=== PATIENT | male | born 1970 ===

== ENCOUNTER 2016-12-21 12:39 | Emergency (ER) | payer OTHER ==
[2016-12-21] MEDS ORDERED: Sodium Chloride 0.9% 1,000 ML IV STA (14:45)
[2016-12-21 15:15] LABS: BASO % 0.6 % (0.0-2.0); EOS # 0.1 K/uL (0.0-0.7); EOS % 1.5 % (0.0-4.0); HEMATOCRIT 42.5 % (35.0-51.0); LYMPH # 1.3 K/uL (1.0-4.3); LYMPH % 17.8 % (20.0-40.0); MEAN CELL VOLUME 86.7 fl (80.0-94.0); MEAN CORPUSCULAR HEMOGLOBIN 28.4 pg (27.0-31.0); MEAN CORPUSCULAR HGB CONC 32.8 g/dL (33.0-37.0); MEAN PLATELET VOLUME 7.6 fl (7.2-11.7); MONO # 0.3 K/uL (0.0-0.8); MONO % 4.4 % (0.0-10.0); NEUT # 5.4 K/uL (1.8-7.0); NEUT % 75.7 % (50.0-75.0); NRBC % 0.1 % (0.0-0.0); RED CELL DISTRIBUTION WIDTH 14.2 % (11.5-14.5); WHITE BLOOD COUNT 7.2 K/uL (4.8-10.8)
[2016-12-21 15:25] LABS: ALB/GLOB RATIO 1.1 (1.0-2.1); ALKALINE PHOSPHATASE 100 U/L (38-126); ALT/SGPT 47 U/L (21-72); AST/SGOT 44 U/L (17-59); BILIRUBIN,TOTAL 0.7 mg/dl (0.2-1.3); BLOOD UREA NITROGEN 10 mg/dl (9-20); CARBON DIOXIDE 25 mmol/L (22-30); CHLORIDE 106 mmol/L (98-107); GFR AFRICAN-AMERICAN > 60; GLUCOSE,RANDOM 92 mg/dL (75-110); POTASSIUM 4.3 MMOL/L (3.6-5.0); SODIUM 140 mmol/l (132-148)
--- NOTE | 2016-12-21 15:25 | RAD ---
HISTORY: Chest pain COMPARISON: No prior. TECHNIQUE: Chest PA and lateral FINDINGS: LUNGS: Mild pulmonary vascular congestion is noted. PLEURA: No significant pleural effusion identified. No pneumothorax apparent. CARDIOVASCULAR: Normal. OSSEOUS STRUCTURES: No significant abnormalities. VISUALIZED UPPER ABDOMEN: Normal. OTHER FINDINGS: None. IMPRESSION: Mild pulmonary vascular congestion.
[2016-12-21 15:56] LABS: THYROID STIMULATING HORMONE 0.67 mIU/ML (0.46-4.68)
[2016-12-21 16:18] LABS: RBC URINE 2 /hpf (0-3); URINE BILIRUBIN NEGATIVE (NEGATIVE); URINE BLOOD NEGATIVE (NEGATIVE); URINE COLOR STRAW (YELLOW); URINE GLUCOSE (UA) NEG (Normal); URINE KETONE NEGATIVE (NEGATIVE); URINE LEUKOCYTE ESTERASE NEG Leu/uL (Negative); URINE PROTEIN NEGATIVE (NEGATIVE); URINE UROBILINOGEN 0.2-1.0 mg/dL (0.2-1.0); WBC URINE < 1 /hpf (0-5)
--- NOTE | 2016-12-21 18:43 | ED PDOC ---
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 Denies fever, rash, cough, SOB, syncope, fever or headache. States was admitted to [facility] several months ago and had cardiac workup and told "heart is fine" in a followup visit with Dr Jayleen [place]. Past Medical History Reviewed: Historical Data, Nursing Documentation, Vital Signs Vital Signs: Last Vital Signs Temp 98.6 F 12/21/16 12:54 Pulse 78 12/21/16 12:54 Resp 20 12/21/16 12:54 BP 151/69 H 12/21/16 12:54 Pulse Ox 99 12/21/16 12:54 - Medical History PMH: No Chronic Diseases - Surgical History Other surgeries: ? shoulder surgery [place] - Family History Family History: States: Unknown Family Hx - Social History Current smoker - smoking cessation education provided: No Alcohol: None - Home Medications Home Medications: Ambulatory Orders Medication Instructions Recorded Naproxen [Naprosyn] 500 mg PO BID PRN #14 tablet 12/21/16 - Allergies Allergies/Adverse Reactions: Allergies Allergy/AdvReac Type Severity Reaction Status Date / Time No Known Allergies Allergy Verified 12/21/16 12:54 Review of Systems ROS Statement: Except As Marked, All Systems Reviewed And Found Negative Constitutional: Positive for: Malaise. Negative for: Fever, Chills Cardiovascular: Positive for: Chest Pain. Negative for: Palpitations, Orthopnea Respiratory: Negative for: Cough, Shortness of Breath Gastrointestinal: Negative for: Nausea, Vomiting, Abdominal Pain Genitourinary Male: Negative for: Dysuria, Frequency Musculoskeletal: Positive for: Back Pain, Leg Pain. Negative for: Neck Pain, Shoulder Pain Skin: Negative for: Rash, Lesions, Jaundice Neurological: Negative for: Weakness, Numbness Psych: Negative for: Anxiety, Depression Physical Exam - Reviewed Nursing Documentation Reviewed: Yes Vital Signs Reviewed: Yes - Physical Exam Appears: Positive for: Well, Non-toxic, No Acute Distress Head Exam: Positive for: ATRAUMATIC, NORMAL INSPECTION, NORMOCEPHALIC Skin: Positive for: Normal Color, Warm, DRY Eye Exam: Positive for: EOMI, Normal appearance, PERRL ENT: Positive for: Normal ENT Inspection Neck: Positive for: Normal, Painless ROM Cardiovascular/Chest: Positive for: Regular Rate, Rhythm Respiratory: Positive for: CNT, Normal Breath Sounds Gastrointestinal/Abdominal: Positive for: Normal Exam, Bowel Sounds, Soft. Negative for: Tenderness Back: Positive for: Normal Inspection, Muscle Spasm. 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 Negative for: Motor/Sensory Deficits, Aphasia, Facial Droop - Laboratory Results Result Diagrams: 12/21/16 14:56 12/21/16 14:56 - ECG O2 Sat by Pulse Oximetry: 99 Medical Decision Making Medical Decision Making: workup initiated for atypical chest pain with lower back discomfort. Neurologically intact. Labs reviewed, clinically unremarkable Trop neg chem and CBC unremarkable mild elev Total CK CXR read as mild pulm vasc congestion, BNP added on and normal Disposition - Clinical Impression Clinical Impression: Chest pain - Patient ED Disposition Is Patient to be Admitted: No Counseled Patient/Family Regarding: Studies Performed, Diagnosis, Need For Followup, Rx Given - Disposition Referrals: Yrn Porter MD [Staff Provider] - Disposition: Routine/Home Disposition Time: 17:30 Condition: STABLE Additional Instructions: Followup with your doctor within next 2-3 days. Return to ER for any new or worsening symptoms. Prescriptions: Naproxen [Naprosyn] 500 mg PO BID PRN #14 tablet PRN Reason: Pain, Moderate (4-7) Instructions: Chest Pain (ED) Print Language: AMHARIC
[2016-12-21 18:58] VITALS: BP 120/80; PULSE 74; RESP 20; TEMP 98; O2SAT 98
--- NOTE | 2016-12-21 19:32 | CARD ---
APPROVED REPORT EKG Measurement Heart [id number] IL [id number] <Conclusion> Sinus rhythm with occasional premature ventricular complexes Otherwise normal ECG
== END 2016-12-21 18:59 | disposition home or self-care (01) ==
LOC: H.ER 12:39
DX: R07.89 Other chest pain (principal); M54.9 Dorsalgia, unspecified

== ENCOUNTER 2017-08-03 13:50 | Emergency (ER) | payer OTHER ==
[2017-08-03 13:51] VITALS: BMI 44.9
--- NOTE | 2017-08-03 14:47 | ED PDOC ---
HPI: CCC, URI, Sore Throat Time Seen by Provider: 08/03/17 14:24 Chief Complaint (Nursing): Cough, Cold, Congestion Chief Complaint (Provider): URI History Per: Patient History/Exam Limitations: no limitations Additional Complaint(s): 47 yo male, PMH of DM, HTN, BAck pain, presents to ED with complaints of nasal congestion and cough x 5 days, upper back pain when he coughs. no fever or chills. additionally, Pt notes chronic lower back pain. Pt has been referred to neurosurgery and PT; however, has yet to arrange follow up. Pt made aware of importance of doing so. Pt has had multiple MRIs in the past showing, Disc herniations. Pt taking Naprozen and Gabbapentin without relief. Past Medical History Reviewed: Nursing Documentation, Vital Signs Vital Signs: Last Vital Signs Temp 97 F L 08/03/17 14:06 Pulse 70 08/03/17 14:06 Resp 20 08/03/17 14:06 BP 157/61 H 08/03/17 14:06 Pulse Ox 95 08/03/17 14:48 - Medical History PMH: Back Problems, Diabetes, HTN, Chronic Pain (back, radiating to legs) Denies: Chronic Kidney Disease - Surgical History Surgical History: No Surg Hx - Family History Family History: States: Unknown Family Hx - Living Arrangements Living Arrangements: With Family - Social History Current smoker - smoking cessation education provided: No Alcohol: None Drugs: Denies - Immunization History Hx Tetanus Toxoid Vaccination: No Hx Influenza Vaccination: No Hx Pneumococcal Vaccination: No - Home Medications Home Medications: Ambulatory Orders Medication Instructions Recorded RX: Metformin HCl [Metformin HCl 500 mg PO BID 06/01/17 ER] Famotidine [Pepcid] 20 mg PO HS #30 tab 06/17/17 RX: Aspirin 81 mg PO DAILY 06/17/17 Tramadol HCl/Acetaminophen 1 tab PO 06/17/17 [Acetaminophen-Tramadol HCl 325 mg-37.5 mg] Methylprednisolone [Medrol Dose 4 mg PO DAILY #21 mg 08/03/17 Pack (21 tabs)] oxyCODONE/Acetaminophen [Percocet 1 ea PO Q6 PRN #5 tab 08/03/17 5/325 mg Tab] - Allergies Allergies/Adverse Reactions: Allergies Allergy/AdvReac Type Severity Reaction Status Date / Time No Known Allergies Allergy Verified 06/17/17 17:06 Review of Systems ROS Statement: Except As Marked, All Systems Reviewed And Found Negative ENT: Positive for: Nose Congestion Respiratory: Positive for: Cough Musculoskeletal: Positive for: Back Pain Physical Exam - Reviewed Nursing Documentation Reviewed: Yes Vital Signs Reviewed: Yes - Physical Exam Appears: Positive for: Well, Non-toxic, No Acute Distress Head Exam: Positive for: ATRAUMATIC, NORMAL INSPECTION, NORMOCEPHALIC Skin: Positive for: Normal Color, Warm, DRY Eye Exam: Positive for: EOMI, Normal appearance, PERRL ENT: Positive for: Normal ENT Inspection Neck: Positive for: Normal, Painless ROM Cardiovascular/Chest: Positive for: Regular Rate, Rhythm Respiratory: Positive for: CNT, Normal Breath Sounds Gastrointestinal/Abdominal: Positive for: Normal Exam, Bowel Sounds, Soft Back: Positive for: Normal Inspection, Other ((-) Saddle anesthesia) Extremity: Positive for: Normal ROM Neurologic/Psych: Positive for: Alert, Oriented - ECG O2 Sat by Pulse Oximetry: 95 Medical Decision Making Medical Decision Making: CXR: NAd, as read by MARYAM 04/23/17: Impression: Multilevel posterior disc bulges as described most prominent at the L3-4 level. Rounded focal area of signal abnormality seen within T12 vertebral body measuring 1.3 centimeters demonstrating decreased T1 signal with increased STIR signal and increased T2 signal. This is of uncertain clinical etiology and underlying osseous lesion cannot be excluded. Correlation with a contrast- enhanced MRI and/or bone scan with plain x-ray may be helpful if clinically indicated to exclude underlying osseous lesion. Additional findings as above. 05/19/17: IMPRESSION: 1. Benign signal abnormality T12 vertebral body. 2. Generalized disc bulge with small central disc protrusion combines with facet arthropathy to cause moderate to severe central canal stenosis once again. 3. Added findings above. Disposition - Clinical Impression Clinical Impression: Upper respiratory infection, Back pain, Lumbar disc herniation with radiculopathy - Patient ED Disposition Is Patient to be Admitted: No - Disposition Disposition: Routine/Home Disposition Time: 15:42 Condition: STABLE Prescriptions: Methylprednisolone [Medrol Dose Pack (21 tabs)] 4 mg PO DAILY #21 mg oxyCODONE/Acetaminophen [Percocet 5/325 mg Tab] 1 ea PO Q6 PRN #5 tab PRN Reason: Pain, Severe (8-10) Instructions: Upper Respiratory Infection (ED), Lumbar Disc Herniation (ED) Forms: [facility] (New Zealander) Print Language: INDONESIAN
--- NOTE | 2017-08-03 15:15 | RAD ---
HISTORY: cough COMPARISON: Comparison chest 12/21/2016. TECHNIQUE: Chest PA and lateral FINDINGS: LUNGS: Persistent elevation right hemidiaphragm likely due to eventration. Suspect minor bibasilar atelectasis. PLEURA: No significant pleural effusion identified. No pneumothorax apparent. CARDIOVASCULAR: Normal. OSSEOUS STRUCTURES: Mild multilevel degenerative spondylosis of the thoracic spine. VISUALIZED UPPER ABDOMEN: Normal. OTHER FINDINGS: None. IMPRESSION: Suspect minor bibasilar atelectasis.
[2017-08-03 15:47] VITALS: BP 128/78; PULSE 78; RESP 19; TEMP 97.5; O2SAT 98
== END 2017-08-03 15:48 | disposition home or self-care (01) ==
LOC: H.ER 13:50
DX: J06.9 Acute upper respiratory infection, unspecified (principal); M51.16 Intervertebral disc disorders with radiculopathy, lumbar region; E11.9 Type 2 diabetes mellitus without complications; G89.29 Other chronic pain; I10 Essential (primary) hypertension; Z79.82 Long term (current) use of aspirin

== ENCOUNTER 2017-08-26 10:25 | Emergency (ER) | payer OTHER ==
[2017-08-26 10:25] VITALS: BMI 44.9
[2017-08-26 10:49] VITALS: BP 137/79; RESP 18; TEMP 98; O2SAT 96
--- NOTE | 2017-08-26 11:53 | ED PDOC ---
Lower Extremity Pain/Injury Time Seen by Provider: 08/26/17 10:56 Chief Complaint (Nursing): Lower Extremity Problem/Injury History Per: Patient History/Exam Limitations: no limitations Onset/Duration Of Symptoms: Days (1 ) Current Symptoms Are (Timing): Intermittent Episodes Additional Complaint(s): 47 yo ,m, PMhx/o DM, HTN, Chronic Lumbar pain with radiculopathy who presents to ED c/o right leg numbness started yesterday, noticed while he was watching his clothes, starting from right foot radiated to the right thigh, intermittent /3 times lasting 5 minutes associated with bilateral leg weakness that started 4 months ago, worse over left foot. He denies fever, lumbar trauma, fall, headache, dizziness, chest pain, SOB, n,v,abd pain, urinary incontinence, fecal incontinence, loss of sensation. Patient had recent visit to ED 3 weeks ago for similar symptoms and he was prescribed steroids, naproxen, Gabapentin with partial relief. Patient was told to apply for [facility] care in order to be seen by primary and Ortho but states he has not filled the papers yet. - Risk Factors DVT Risk Factors: Pos: None Past Medical History Vital Signs: Last Vital Signs Temp 98.0 F 08/26/17 10:42 Pulse 99 H 08/26/17 10:42 Resp 18 08/26/17 10:42 BP 137/79 08/26/17 10:42 Pulse Ox 96 08/26/17 10:42 - Medical History PMH: Back Problems, Diabetes, HTN, Chronic Pain (back, radiating to legs) Denies: Chronic Kidney Disease - Family History Family History: States: Unknown Family Hx - Immunization History Hx Tetanus Toxoid Vaccination: No Hx Influenza Vaccination: No Hx Pneumococcal Vaccination: No - Home Medications Home Medications: Ambulatory Orders Medication Instructions Recorded Metformin HCl [Metformin HCl ER] 500 mg PO BID 06/01/17 Aspirin 81 mg PO DAILY 06/17/17 Famotidine [Pepcid] 20 mg PO HS #30 tab 06/17/17 Tramadol HCl/Acetaminophen 1 tab PO 06/17/17 [Acetaminophen-Tramadol HCl 325 mg-37.5 mg] Methylprednisolone [Medrol Dose 4 mg PO DAILY #21 mg 08/03/17 Pack (21 tabs)] oxyCODONE/Acetaminophen [Percocet 1 ea PO Q6 PRN #5 tab 08/03/17 5/325 mg Tab] - Allergies Allergies/Adverse Reactions: Allergies Allergy/AdvReac Type Severity Reaction Status Date / Time No Known Allergies Allergy Verified 08/26/17 10:49 Wells Criteria for PE - Wells Criteria for Pulmonary Embolism Clinical Signs and Symptoms of DVT: No P.E is #1 Diagnosis, or Equally Likely: No Heart Rate >100: No Immobilization at least 3 days;Surgery previous 4 weeks: No Previous, objectively diagnosed PE or DVT: No Hemoptysis: No Malignancy w/treatment within 6 months, or palliative: No Total Score: 0 Review of Systems Neurological: Positive for: Weakness, Numbness Physical Exam - Physical Exam Appears: Positive for: No Acute Distress Head Exam: Positive for: ATRAUMATIC, NORMOCEPHALIC Skin: Positive for: Normal Color Eye Exam: Positive for: Normal appearance Neck: Positive for: Normal Cardiovascular/Chest: Positive for: Regular Rate, Rhythm. Negative for: Chest Non Tender, Murmur Respiratory: Positive for: Normal Breath Sounds. Negative for: Crackles, Rales , Rhonchi Pulses-Post. Tibialis (L): 2+ Pulses-Post. Tibialis (R): 2+ Gastrointestinal/Abdominal: Positive for: Bowel Sounds, Soft. Negative for: Tenderness, Guarding, Rebound Back: Positive for: Normal Inspection. Negative for: L CVA Tenderness, R CVA Tenderness Extremity: Positive for: Normal ROM. Negative for: Tenderness DTR - Knee (R): 2+ DTR - Knee (L): 2+ Neurologic/Psych: Positive for: Alert, Oriented, Other (Muscle strength 3/5 left foot for dorsal flexion. right leg muscle strenght 5/5. sensation intact lower ext. monofilament test neg. DTR 2+ Patellar b/l. ) - ECG O2 Sat by Pulse Oximetry: 96 Medical Decision Making Medical Decision Makin:45 AM Initial impression Right leg numbness secondary to Chronic low back pain with radiculopathy Plan Imaging: MRI Lumbar spine 05/09/17 Impression: Multilevel posterior disc bulges as described most prominent at the L3-4 level. Rounded focal area of signal abnormality seen within T12 vertebral body measuring 1.3 centimeters demonstrating decreased T1 signal with increased STIR signal and increased T2 signal. This is of uncertain clinical etiology and underlying osseous lesion cannot be excluded. Correlation with a contrast- enhanced MRI and/or bone scan with plain x-ray may be helpful if clinically indicated to exclude underlying osseous lesion. IMPRESSION: 1. Benign signal abnormality T12 vertebral body. 2. Generalized disc bulge with small central disc protrusion combines with facet arthropathy to cause moderate to severe central canal stenosis once again. 3. Added findings above. MRI Lumbar spine 05/2017 reviewed and discussed results with patient. Patient verbalized understanding of applying for [facility] in order to be seen by PMD and get referral to Ortho. Patient given my personal information card and will have follow up in clinic Dr Aguayo once he gets [facility]. Patient still has medications with him for pain and steroids, although patient' s medical chief complaint today is numbness. Disposition - Clinical Impression Clinical Impression: Lumbar radiculopathy, Lumbar disc herniation with radiculopathy - Patient ED Disposition Is Patient to be Admitted: No - Disposition Referrals: [facility] [Outside] Disposition: Routine/Home Disposition Time: 12:55 Condition: FAIR Additional Instructions: Patient verbalized understanding of applying for [facility] in order to be seen by PMD and get referral to Ortho. Patient given my personal information card and will have follow up in clinic Dr Aguayo once he gets [facility]. Instructions: Radiculopathy Forms: [employer] [employer] (Honduran) Print Language: ARABIC
[2017-08-26 12:57] VITALS: PULSE 84
== END 2017-08-26 12:56 | disposition home or self-care (01) ==
LOC: H.ER 10:25
DX: M51.16 Intervertebral disc disorders with radiculopathy, lumbar region (principal); E11.9 Type 2 diabetes mellitus without complications; G89.29 Other chronic pain; I10 Essential (primary) hypertension; Z79.82 Long term (current) use of aspirin

== ENCOUNTER 2018-02-02 16:19 | Observation (INO) | payer OTHER, SELFPAY ==
[2018-02-02 16:19] VITALS: BMI 44.9
[2018-02-02] MEDS ORDERED: Oxycodone/Acetaminophen 5/325 mg Tab PO STA (17:00)
--- NOTE | 2018-02-02 17:04 | ED PDOC ---
HPI: General Adult Time Seen by Provider: 02/02/18 17:00 Chief Complaint (Nursing): Chest Pain History Per: Patient History/Exam Limitations: language barrier (indonesian speaking) Onset/Duration Of Symptoms: Days (1 week for back pain; 1 day for chest pain) Have you had recent travel within the past 21 days to any of the following countries: [place], [place], [place] or [place]?: No Current Symptoms Are (Timing): Still Present Severity: Severe Pain Scale Rating Of: 7 Additional Complaint(s): pt p/w + 1 day onset of left sided chest pain, noted radiation of pain from epigastrium x 1 day; + ~ 1 week onset of lower back pain with pain radiating down his right leg; pt states + lower back pain/right leg pain is severe rated at 7/10; pt states leg pain is intermittent, worse with movement/walking/ position changes; pt states no fever/chills/sweats, + mild sob, no palpitations , no abd pain, no n/v, + intermittent right lower foot/leg numbness/tingling associated with his back pain; pt denied urinary/bowel changes, no incontinence ; no rashes/gross bleeding, no new fall/trauma/sick contact, no travel; pt denied other complaints; pt is here for further eval. PCP: NONE pt sustained a fall 1 year ago, + back pain pt is right hand dominate Past Medical History Reviewed: Historical Data, Nursing Documentation, Vital Signs Vital Signs: Last Vital Signs Temp 97.8 F 02/02/18 16:36 Pulse 75 02/02/18 16:44 Resp 18 02/02/18 16:36 BP 123/66 02/02/18 16:36 Pulse Ox 98 02/02/18 18:28 - Medical History PMH: Back Problems, Diabetes, HTN, Chronic Pain (back, radiating to legs) Denies: Chronic Kidney Disease - Surgical History Surgical History: No Surg Hx - Family History Family History: States: Unknown Family Hx - Living Arrangements Living Arrangements: With Family - Social History Current smoker - smoking cessation education provided: No Ex-Smoker (has not smoked in the last 12 months): No Alcohol: None Drugs: Denies - Immunization History Hx Tetanus Toxoid Vaccination: No Hx Influenza Vaccination: No Hx Pneumococcal Vaccination: No - Home Medications Home Medications: Ambulatory Orders Medication Instructions Recorded Naproxen [Naprosyn] 1 tab PO PRN PRN 02/02/18 - Allergies Allergies/Adverse Reactions: Allergies Allergy/AdvReac Type Severity Reaction Status Date / Time No Known Allergies Allergy Verified 02/02/18 16:36 Review of Systems ROS Statement: Except As Marked, All Systems Reviewed And Found Negative Constitutional: Positive for: Weakness Eyes: Negative for: Pain ENT: Negative for: Ear Pain Cardiovascular: Positive for: Chest Pain. Negative for: Palpitations, Edema, Light Headedness Respiratory: Positive for: Shortness of Breath. Negative for: Cough, SOB with Exertion Gastrointestinal: Negative for: Nausea, Vomiting, Abdominal Pain Musculoskeletal: Positive for: Back Pain, Other (right leg pain). Negative for : Neck Pain Skin: Negative for: Rash Neurological: Negative for: Weakness, Altered Mental Status, Headache Physical Exam - Reviewed Nursing Documentation Reviewed: Yes Vital Signs Reviewed: Yes (WNL) - Physical Exam Appears: Positive for: Well (alert/awake, GCS = 15, oriented x 3, NAD, uncomfortable; resting in bed, cooperative, follows command with ease), Non- toxic, Uncomfortable Head Exam: Positive for: ATRAUMATIC, NORMAL INSPECTION, NORMOCEPHALIC Skin: Positive for: Normal Color (cap refill < 1sec, no ulcerations, no petechiae; no rashes), Warm, Dry. Negative for: Diaphoresis, Pallor, Rash Eye Exam: Positive for: Normal appearance, EOMI, PERRL, Other (no photophobia, sclera anicteric, no nystagmus). Negative for: Nystagmus ENT: Positive for: Normal ENT Inspection Neck: Positive for: Normal (intact ROM, no midline tenderness, no nuchal rigidity), Painless ROM, Supple, Trachea Midline Cardiovascular/Chest: Positive for: Regular Rate, Rhythm, Chest Non Tender, Other (+S1, +S2) Respiratory: Positive for: Normal Breath Sounds, Other (CTA b/l, no w/r/r, no accessory muscle use noted; no tachypenia) Gastrointestinal/Abdominal: Positive for: Normal Exam, Bowel Sounds, Soft, Other (well nourished male, no focal tenderness, no masses/rebound/guarding/ rigidity; no segura's sign, no mcburney's point tenderness) Back: Positive for: Normal Inspection, Other (+ right lower paralumbar tenderness, no midline tenderness; +right SLR at 30degrees; + left SLR at 45degrees). 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 - Laboratory Results Result Diagrams: 02/02/18 17:19 02/02/18 17:19 - ECG ECG: Positive for: Interpreted By Me, Viewed By Me Interpretation Of Abn EKG: NSR at 75 bpm, normal axis, no ectopy, qs in leads III, no st changes, NORMAL EKG; unchanged compare with old ekg 06/2017 O2 Sat by Pulse Oximetry: 98 Pulse Ox Interpretation: Normal - Radiology X-Ray: Interpreted by Me, Viewed By Me, Read By Radiologist - Progress ED Course And Treament: 5:15pm - pt is currently chest pain free 6:30pm - pt remained chest pain free; after medications, pt's back pain improved 6:30pm - I spoke to medical residents school operations manager, made aware, agrees with admission /observation pt is made aware of his medical results agrees with admission/observation Date of service: 02/02/2018 HISTORY: Chest pain. COMPARISON: 08/03/2017. TECHNIQUE: Chest PA and lateral FINDINGS: LUNGS: No active pulmonary disease. PLEURA: No significant pleural effusion identified. No pneumothorax apparent. CARDIOVASCULAR: Normal. OSSEOUS STRUCTURES: No significant abnormalities. VISUALIZED UPPER ABDOMEN: Normal. OTHER FINDINGS: None. IMPRESSION: No active disease. No significant interval change compared to the prior examination(s). Date of service: 02/02/2018 PROCEDURE: Radiographs of the Lumbar Spine. HISTORY: lower back pain COMPARISON: No prior. FINDINGS: BONES: Normal alignment. No listhesis. No fracture. Multilevel non marginal osteophyte formation. DISC SPACES: Unremarkable. OTHER FINDINGS: None. IMPRESSION: No acute findings related to/accounting for the clinical presentation. Additional benign and/or incidental findings described above. Re-evaluation Time: 18:30 Condition: Re-examined, Improved - Physician Consult Information Time Consulting Physican Contacted: 18:27 Physician Contacted: Test Resident Medical Decision Making Medical Decision Making: Impression: chest pain/low back pain i have consider all the differential diagnosis regarding pt's chief medical complaints/clinical findings, including but are not limited to: chest pain r/o acs; low back pain A/P: chest pain/low back pain - labs - acs eval - xray - supportive care - observe/reevaluation Disposition - Clinical Impression Clinical Impression: Chest pain with low risk for cardiac etiology, Low back pain radiating to right leg - Patient ED Disposition Is Patient to be Admitted: Yes Counseled Patient/Family Regarding: Studies Performed, Diagnosis, Need For Followup, Rx Given - Disposition Disposition Time: 17:14 Condition: STABLE - Pt Status Changed To: Hospital Disposition Of: Observation
[2018-02-02] MEDS ORDERED: Oxycodone/Acetaminophen 5/325 mg Tab ONE (17:05)
[2018-02-02] MEDS: Sodium Chloride 0.9% 1,000 ML IV SCH (17:16)
[2018-02-02 17:28] LABS: BASO # 0.1 K/uL (0.0-0.2); BASO % 0.9 % (0.0-2.0); EOS # 0.2 K/uL (0.0-0.7); EOS % 2.7 % (0.0-4.0); HEMOGLOBIN 13.7 g/dL (12.0-18.0); LYMPH # 1.9 K/uL (1.0-4.3); LYMPH % 25.6 % (20.0-40.0); MEAN CELL VOLUME 85.9 fl (80.0-94.0); MEAN CORPUSCULAR HEMOGLOBIN 28.6 pg (27.0-31.0); MEAN CORPUSCULAR HGB CONC 33.3 g/dL (33.0-37.0); MEAN PLATELET VOLUME 7.6 fl (7.2-11.7); MONO # 0.5 K/uL (0.0-0.8); MONO % 6.6 % (0.0-10.0); NEUT # 4.8 K/uL (1.8-7.0); NEUT % 64.2 % (50.0-75.0); RBC 4.78 Mil/uL (4.40-5.90); RED CELL DISTRIBUTION WIDTH 14.5 % (11.5-14.5); WHITE BLOOD COUNT 7.4 K/uL (4.8-10.8)
[2018-02-02 17:48] LABS: ALB/GLOB RATIO 1.1 (1.0-2.1); ALBUMIN 4.3 g/dL (3.5-5.0); ALT/SGPT 43 U/L (21-72); AST/SGOT 53 U/L (17-59); BLOOD UREA NITROGEN 12 mg/dl (9-20); CALCIUM 9.1 mg/dL (8.4-10.2); GFR AFRICAN-AMERICAN > 60; GFR NON-AFRICAN AMERICAN > 60; LIPASE 70 U/L (23-300)
--- NOTE | 2018-02-02 17:50 | RAD ---
Date of service: 02/02/2018 PROCEDURE: Radiographs of the Lumbar Spine. HISTORY: lower back pain COMPARISON: No prior. FINDINGS: BONES: Normal alignment. No listhesis. No fracture. Multilevel non marginal osteophyte formation. DISC SPACES: Unremarkable. OTHER FINDINGS: None. IMPRESSION: No acute findings related to/accounting for the clinical presentation. Additional benign and/or incidental findings described above.
--- NOTE | 2018-02-02 17:50 | RAD ---
Date of service: 02/02/2018 HISTORY: Chest pain. COMPARISON: 08/03/2017. TECHNIQUE: Chest PA and lateral FINDINGS: LUNGS: No active pulmonary disease. PLEURA: No significant pleural effusion identified. No pneumothorax apparent. CARDIOVASCULAR: Normal. OSSEOUS STRUCTURES: No significant abnormalities. VISUALIZED UPPER ABDOMEN: Normal. OTHER FINDINGS: None. IMPRESSION: No active disease. No significant interval change compared to the prior examination(s).
[2018-02-02 17:53] LABS: SQUAMOUS EPITHIAL < 1 /hpf (0-5); URINE BILIRUBIN NEGATIVE (NEGATIVE); URINE BLOOD NEGATIVE (NEGATIVE); URINE CLARITY CLEAR (Clear); URINE COLOR YELLOW (YELLOW); URINE GLUCOSE (UA) NEG (Normal); URINE LEUKOCYTE ESTERASE NEG Leu/uL (Negative); URINE PROTEIN NEGATIVE (NEGATIVE); URINE UROBILINOGEN 0.2-1.0 mg/dL (0.2-1.0)
--- NOTE | 2018-02-02 19:28 | CP.PCM.HP ---
<DaltonSerafin - Last Filed: 02/02/18 20:23> History of Present Illness - History of Present Illness History of Present Illness: Hx taken from patient and medical records Full code PMD: [facility] 47 y/o M with PMhx of lumbar disc bulging with spinal stenosis presents to ED c/ o chest pain and lower back pain. Patient states CP started Yesterday while he was at home and has been intermittent until his arrival today at ED. Pain is left sternal. Denies radiation of the pain ,vomiting, nausea, SOB or palpitations. Patient states that he also decided to present to ED because he "[place] when he noticed that his left leg was going to fail". Patient states he has had similar episodes in the past and that he has chronic left foot drop and r/side ciatalgia. Patient has no insurance and has not been able to see a Neurosurgeon. He was referred to [facility] in 08/2017 after he visited [facility] and states he has appt for 04/2018 with NeuroSx at [facility]. Has had multiple ER visit to [facility], [place], [facility], [place] and [facility] ERs because of back pain. Last time he presented to [place] and has been taking Naproxen PRN. Denies changes in urination or stools, denies saddle anesthesia. MRI of thoracic spine in 2017 normal. MRI of lumbar spine in 2017 shows mod to severe lumbar spinal stenosis. At the time of eval at ER patient denies CP or lower back pain. ED course VS stable CMP unremarkable Trop x1 normal EKG: No acute ischemic changes CXR and Lumbar spine XR: No acute changes Diazepam 2 mg PO once ASA 81 mg once Toradol 30 mg IV once IV NS at 125 mls/hr Percocet po once PMHx: Lumbar spine disc disease with spinal stenosis, Prediabetes SxHx: R/shoulder Sx during childhood(unknown reason) SHx: Denies x3 Fhx: Unknown Allergies: NKDA Present on Admission - Present on Admission Any Indicators Present on Admission: No Review of Systems - Review of Systems All systems: reviewed and no additional remarkable complaints except (Those described on HPI) Past Patient History - Infectious Disease Hx of Infectious Diseases: None - Past Medical History & Family History Past Medical History?: No - Past Social History Smoking Status: Never Smoked Alcohol: None Drugs: Denies - CARDIAC Hx Cardiac Disorders: No - PULMONARY Hx Respiratory Disorders: No - NEUROLOGICAL Hx Neurological Disorder: No - HEENT Hx HEENT Problems: No - RENAL Hx Chronic Kidney Disease: No - ENDOCRINE/METABOLIC Hx Endocrine Disorders: No Other/Comment: Prediabetes - HEMATOLOGICAL/ONCOLOGICAL Hx Blood Disorders: No - INTEGUMENTARY Hx Dermatological Problems: No - MUSCULOSKELETAL/RHEUMATOLOGICAL Hx Musculoskeletal Disorders: Yes Hx Spinal Stenosis: Yes - GASTROINTESTINAL Hx Gastrointestinal Disorders: Yes Hx Gastroesophageal Reflux: Yes - GENITOURINARY/GYNECOLOGICAL Hx Genitourinary Disorders: No - PSYCHIATRIC Hx Psychophysiologic Disorder: No Hx Substance Use: No - SURGICAL HISTORY Hx Surgeries: Yes Other/Comment: Right shoulder surgery - ANESTHESIA Hx Anesthesia: Yes Hx Anesthesia Reactions: No Hx Malignant Hyperthermia: No Meds Allergies/Adverse Reactions: Allergies Allergy/AdvReac Type Severity Reaction Status Date / Time No Known Allergies Allergy Verified 02/02/18 16:36 Physical Exam - Constitutional Appears: Non-toxic, No Acute Distress - Head Exam Head Exam: ATRAUMATIC, NORMAL INSPECTION - Eye Exam Eye Exam: EOMI, PERRL - ENT Exam ENT Exam: Mucous Membranes Moist - Neck Exam Neck exam: Positive for: Full Rom - Respiratory Exam Respiratory Exam: Clear to Auscultation Bilateral, NORMAL BREATHING PATTERN. absent: Rales, Wheezes, Respiratory Distress - Cardiovascular Exam Cardiovascular Exam: REGULAR RHYTHM, +S1, +S2. absent: Gallop, Systolic Murmur - GI/Abdominal Exam GI & Abdominal Exam: Normal Bowel Sounds, Soft. absent: Distended, Firm, Guarding, Hernia, Rebound, Rigid, Tenderness - Extremities Exam Extremities exam: Positive for: normal inspection. Negative for: joint swelling , tenderness - Back Exam Back exam: tenderness (Lumbar spine) - Neurological Exam Neurological exam: Alert, Motor Sensory Deficit (left foot drop), Oriented x3 - Psychiatric Exam Psychiatric exam: Anxious - Skin Skin Exam: Normal Color, Warm Results - Vital Signs Recent Vital Signs: Last Vital Signs Temp 97.8 F 02/02/18 16:36 Pulse 75 02/02/18 16:44 Resp 18 02/02/18 16:36 BP 123/66 02/02/18 16:36 Pulse Ox 98 02/02/18 18:28 - Labs Result Diagrams: 02/02/18 17:19 02/02/18 17:19 Labs: Laboratory Results - last 24 hr 02/02/18 02/02/18 02/02/18 17:09 17:19 17:19 WBC 7.4 RBC 4.78 Hgb 13.7 Hct 41.1 MCV 85.9 MCH 28.6 MCHC 33.3 RDW 14.5 Plt Count 311 MPV 7.6 Neut % (Auto) 64.2 Lymph % (Auto) 25.6 Owen % (Auto) 6.6 Eos % (Auto) 2.7 Baso % (Auto) 0.9 Neut # (Auto) 4.8 Lymph # (Auto) 1.9 Owen # (Auto) 0.5 Eos # (Auto) 0.2 Baso # (Auto) 0.1 Sodium 142 Potassium 4.1 Chloride 104 Carbon Dioxide 23 Anion Gap 19 BUN 12 Creatinine 0.8 Est GFR ( Amer) > 60 Est GFR (Non-Af Amer) > 60 Random Glucose 113 H Calcium 9.1 Total Bilirubin 0.5 AST 53 ALT 43 Alkaline Phosphatase 109 Troponin I < 0.0120 Total Protein 8.1 Albumin 4.3 Globulin 3.8 Albumin/Globulin Ratio 1.1 Lipase 70 Urine Color Yellow Urine Clarity Clear Urine pH 6.0 Ur Specific [place] 1.025 Urine Protein Negative Urine Glucose (UA) Neg Urine Ketones Negative Urine Blood Negative Urine Nitrate Negative Urine Bilirubin Negative Urine Urobilinogen 0.2-1.0 Ur Leukocyte Esterase Neg Ur Squamous Epith Cells < 1 Assessment & Plan - Assessment and Plan (Free Text) Assessment: 47 y/o M with PMhx of spinal stenosis admitted for CP Chest pain Acute Resolved at the time of exam S/P ASA 81, Toradol and Percocet at ED Trop x1 normal EKG no acute ischemic changes Unlikely cardiac Poss MSK VS Anxiety F/U EKG AM and Trops Q8h Admit to Tele for Obs Chronic left foot drop Poss due to spinal stenosis F/U as outpatient No other acute signs of cord compression Has appt to be eval by NeuroSx at [facility] in 04/2018 Lower back pain with ciatica Due to lumbar disc disease Toradol PRN Would benefit from PT as outpatient and NSAIDs until evaluated by NeuroSx No changes in urination or stools. NO saddle anesthesia DVT prophylaxis Lovenox 40 mg HS <Kalina Jensen - Last Filed: 02/03/18 08:37> Results - Vital Signs Recent Vital Signs: Last Vital Signs Temp 98 F 02/02/18 20:09 Pulse 75 02/03/18 07:37 Resp 17 02/03/18 07:37 BP 115/70 02/02/18 20:09 Pulse Ox 96 02/03/18 07:37 - Labs Result Diagrams: 02/03/18 07:14 02/03/18 07:14 Labs: Laboratory Results - last 24 hr 02/02/18 02/02/18 02/02/18 17:09 17:19 17:19 WBC 7.4 RBC 4.78 Hgb 13.7 Hct 41.1 MCV 85.9 MCH 28.6 MCHC 33.3 RDW 14.5 Plt Count 311 MPV 7.6 Neut % (Auto) 64.2 Lymph % (Auto) 25.6 Owen % (Auto) 6.6 Eos % (Auto) 2.7 Baso % (Auto) 0.9 Neut # (Auto) 4.8 Lymph # (Auto) 1.9 Owen # (Auto) 0.5 Eos # (Auto) 0.2 Baso # (Auto) 0.1 Sodium 142 Potassium 4.1 Chloride 104 Carbon Dioxide 23 Anion Gap 19 BUN 12 Creatinine 0.8 Est GFR ( Amer) > 60 Est GFR (Non-Af Amer) > 60 Random Glucose 113 H Calcium 9.1 Total Bilirubin 0.5 AST 53 ALT 43 Alkaline Phosphatase 109 Troponin I < 0.0120 Total Protein 8.1 Albumin 4.3 Globulin 3.8 Albumin/Globulin Ratio 1.1 Lipase 70 Urine Color Yellow Urine Clarity Clear Urine pH 6.0 Ur Specific [place] 1.025 Urine Protein Negative Urine Glucose (UA) Neg Urine Ketones Negative Urine Blood Negative Urine Nitrate Negative Urine Bilirubin Negative Urine Urobilinogen 0.2-1.0 Ur Leukocyte Esterase Neg Ur Squamous Epith Cells < 1 02/03/18 02/03/18 02/03/18 01:30 07:14 07:14 WBC 7.1 RBC 4.41 Hgb 12.8 Hct 38.3 MCV 86.7 MCH 29.1 MCHC 33.5 RDW 14.3 Plt Count 264 MPV Neut % (Auto) Lymph % (Auto) Owen % (Auto) Eos % (Auto) Baso % (Auto) Neut # (Auto) Lymph # (Auto) Owen # (Auto) Eos # (Auto) Baso # (Auto) Sodium 140 Potassium 4.3 Chloride 107 Carbon Dioxide 25 Anion Gap 12 BUN 16 Creatinine 0.5 L Est GFR ( Amer) > 60 Est GFR (Non-Af Amer) > 60 Random Glucose 92 Calcium 8.4 Total Bilirubin AST ALT Alkaline Phosphatase Troponin I < 0.0120 Total Protein Albumin Globulin Albumin/Globulin Ratio Lipase Urine Color Urine Clarity Urine pH Ur Specific [place] Urine Protein Urine Glucose (UA) Urine Ketones Urine Blood Urine Nitrate Urine Bilirubin Urine Urobilinogen Ur Leukocyte Esterase Ur Squamous Epith Cells Attending/Attestation - Attestation I have fully participated in the care of the patient.: Yes I have reviewed all pertinent clinical information: Yes
[2018-02-03] MEDS: Sodium Chloride 0.9% 1,000 ML IV SCH ×2 (03:05→08:01)
--- NOTE | 2018-02-03 07:16 | CP.PCM.PN ---
Subjective - Date & Time of Evaluation Date of Evaluation: 02/03/18 Time of Evaluation: 06:50 - Subjective Subjective: Pt is seen and examined at bed side. No acute event overnight. Pt have no complain today. Pt had no chest pain and he feel good. No Fever, chills, headache, dizziness, SOB, abd pain, diarrhea, constipation, dysuria, polyuria, or any other symptoms. Objective - Vital Signs/Intake and Output Vital Signs (last 24 hours): Temp Pulse Resp BP Pulse Ox 98 F 63 16 115/70 98 02/02/18 20:09 02/02/18 20:09 02/02/18 20:02/02/18 20:02/02/18 20:25 - Medications Medications: Current Medications Enoxaparin Sodium (Lovenox) 40 mg SC HS RENNY PRN Reason: Protocol Famotidine (Pepcid) 20 mg PO DAILY [facility] Sodium Chloride (Sodium Chloride 0.9%) 1,000 mls @ 125 mls/hr IV .Q8H [facility] Last Admin: 02/03/18 03:05 Dose: 125 mls/hr Ketorolac Tromethamine (Toradol) 15 mg IVP Q6 PRN PRN Reason: Pain, moderate (4-7) - Labs Labs: 02/02/18 17:19 02/02/18 17:19 - Constitutional Appears: Well, Non-toxic, No Acute Distress - Head Exam Head Exam: ATRAUMATIC, NORMAL INSPECTION, NORMOCEPHALIC - Eye Exam Eye Exam: EOMI, Normal appearance, PERRL Pupil Exam: NORMAL ACCOMODATION, PERRL - ENT Exam ENT Exam: Mucous Membranes Moist, Normal Exam - Neck Exam Neck Exam: Full ROM, Normal Inspection - Respiratory Exam Respiratory Exam: Clear to Ausculation Bilateral, NORMAL BREATHING PATTERN. absent: Chest Wall Tenderness, Rhonchi, Wheezes, Respiratory Distress - Cardiovascular Exam Cardiovascular Exam: REGULAR RHYTHM, +S1, +S2. absent: JVD, RRR - GI/Abdominal Exam GI & Abdominal Exam: Soft, Normal Bowel Sounds. absent: Tenderness - Extremities Exam Extremities Exam: Full ROM, Normal Capillary Refill, Normal Inspection. absent : Calf Tenderness, Joint Swelling - Back Exam Back Exam: Full ROM, NORMAL INSPECTION - Neurological Exam Neurological Exam: Alert, Awake, CN II-XII Intact, Normal Gait, Oriented x3 Neuro motor strength exam: Left Upper Extremity: 5, Right Upper Extremity: 5, Left Lower Extremity: 4, Right Lower Extremity: 5 Additional comments: Left foot drop and decrease in motor strength - Psychiatric Exam Psychiatric exam: Normal Affect, Normal Mood. absent: Anxious, Depressed - Skin Skin Exam: Dry, Intact, Normal Color, Warm Assessment and Plan - Assessment and Plan (Free Text) Assessment: 47 yo M with PMh of spinal stenosis admitted for Chest pain. Chest pain Acute Resolved at the time of exam ACS Protocol ASA 81, Toradol and Percocet at ED EKG no acute ischemic changes Unlikely cardiac Possible MSK VS Anxiety F/U EKG Trops 1x and 2x negative Chronic left foot drop Possible due to spinal stenosis F/U as outpatient No other acute signs of cord compression Pt have appointment to be evaluated by NeuroSx at [facility] in 04/2018 Lower back pain with ciatica Due to lumbar disc disease Toradol PRN Would benefit from PT as outpatient and NSAIDs until evaluated by NeuroSx No changes in urination or stools. NO saddle anesthesia DVT prophylaxis Lovenox 40 mg HS
[2018-02-03 07:21] LABS: HEMOGLOBIN 12.8 g/dL (12.0-18.0); MEAN CELL VOLUME 86.7 fl (80.0-94.0); MEAN CORPUSCULAR HEMOGLOBIN 29.1 pg (27.0-31.0); MEAN CORPUSCULAR HGB CONC 33.5 g/dL (33.0-37.0); RBC 4.41 Mil/uL (4.40-5.90); RED CELL DISTRIBUTION WIDTH 14.3 % (11.5-14.5); WHITE BLOOD COUNT 7.1 K/uL (4.8-10.8)
[2018-02-03 07:51] LABS: BLOOD UREA NITROGEN 16 mg/dl (9-20); CALCIUM 8.4 mg/dL (8.4-10.2); GFR AFRICAN-AMERICAN > 60; GFR NON-AFRICAN AMERICAN > 60
--- NOTE | 2018-02-03 11:45 | CP.PCM.DIS ---
Provider - Provider Date of Admission: 02/02/18 18:26 Attending physician: Kalina Jensen MD Time Spent in preparation of Discharge (in minutes): 15 Hospital Course - Lab Results Lab Results: Most Recent Lab Values WBC 7.1 K/uL (4.8-10.8) 02/03/18 07:14 RBC 4.41 Mil/uL (4.40-5.90) 02/03/18 07:14 Hgb 12.8 g/dL (12.0-18.0) 02/03/18 07:14 Hct 38.3 % (35.0-51.0) 02/03/18 07:14 MCV 86.7 fl (80.0-94.0) 02/03/18 07:14 MCH 29.1 pg (27.0-31.0) 02/03/18 07:14 MCHC 33.5 g/dL (33.0-37.0) 02/03/18 07:14 RDW 14.3 % (11.5-14.5) 02/03/18 07:14 Plt Count 264 K/uL (130-400) 02/03/18 07:14 MPV 7.6 fl (7.2-11.7) 02/02/18 17:19 Neut % (Auto) 64.2 % (50.0-75.0) 02/02/18 17:19 Lymph % (Auto) 25.6 % (20.0-40.0) 02/02/18 17:19 [place] % (Auto) 6.6 % (0.0-10.0) 02/02/18 17:19 Eos % (Auto) 2.7 % (0.0-4.0) 02/02/18 17:19 Baso % (Auto) 0.9 % (0.0-2.0) 02/02/18 17:19 Neut # (Auto) 4.8 K/uL (1.8-7.0) 02/02/18 17:19 Lymph # (Auto) 1.9 K/uL (1.0-4.3) 02/02/18 17:19 [place] # (Auto) 0.5 K/uL (0.0-0.8) 02/02/18 17:19 Eos # (Auto) 0.2 K/uL (0.0-0.7) 02/02/18 17:19 Baso # (Auto) 0.1 K/uL (0.0-0.2) 02/02/18 17:19 Sodium 140 mmol/l (132-148) 02/03/18 07:14 Potassium 4.3 MMOL/L (3.6-5.0) 02/03/18 07:14 Chloride 107 mmol/L (98-107) 02/03/18 07:14 Carbon Dioxide 25 mmol/L (22-30) 02/03/18 07:14 Anion Gap 12 (10-20) 02/03/18 07:14 BUN 16 mg/dl (9-20) 02/03/18 07:14 Creatinine 0.5 mg/dl (0.8-1.5) L 02/03/18 07:14 Est GFR ( Amer) > 60 02/03/18 07:14 Est GFR (Non-Af Amer) > 60 02/03/18 07:14 Random Glucose 92 mg/dL (75-110) 02/03/18 07:14 Calcium 8.4 mg/dL (8.4-10.2) 02/03/18 07:14 Total Bilirubin 0.5 mg/dl (0.2-1.3) 02/02/18 17:19 AST 53 U/L (17-59) 02/02/18 17:19 ALT 43 U/L (21-72) 02/02/18 17:19 Alkaline Phosphatase 109 U/L (38-126) 02/02/18 17:19 Troponin I < 0.0120 ng/mL (0.00-0.120) 02/03/18 09:00 Total Protein 8.1 G/DL (6.3-8.2) 02/02/18 17:19 Albumin 4.3 g/dL (3.5-5.0) 02/02/18 17:19 Globulin 3.8 gm/dL (2.2-3.9) 02/02/18 17:19 Albumin/Globulin Ratio 1.1 (1.0-2.1) 02/02/18 17:19 Lipase 70 U/L (23-300) 02/02/18 17:19 Urine Color Yellow (YELLOW) 02/02/18 17:09 Urine Clarity Clear (Clear) 02/02/18 17:09 Urine pH 6.0 (5.0-8.0) 02/02/18 17:09 Ur Specific [place] 1.025 (1.003-1.030) 02/02/18 17:09 Urine Protein Negative mg/dL (NEGATIVE) 02/02/18 17:09 Urine Glucose (UA) Neg mg/dL (Normal) 02/02/18 17:09 Urine Ketones Negative mg/dL (NEGATIVE) 02/02/18 17:09 Urine Blood Negative (NEGATIVE) 02/02/18 17:09 Urine Nitrate Negative (NEGATIVE) 02/02/18 17:09 Urine Bilirubin Negative (NEGATIVE) 02/02/18 17:09 Urine Urobilinogen 0.2-1.0 mg/dL (0.2-1.0) 02/02/18 17:09 Ur Leukocyte Esterase Neg Jose/uL (Negative) 02/02/18 17:09 Ur Squamous Epith Cells < 1 /hpf (0-5) 02/02/18 17:09 - Hospital Course Hospital Course: Pt is 47 yo male with PMH of Lumbar disc bulging with spinal stenosis, presented to ER due to Chest pain, was admitted to evaluate for ACS. ACS protocol was started, EKG was NSR, Trop negative x2, Pt improved, no chest pain , SOB, dizziness or any other symptoms. Medical team approve pt is medically stable to be discharged. F/u with Dr. Ahuja 6 Saturday at 1:00pm F/U evaluation by NeuroSx at [facility] in 04/2018 Discharge Exam - Head Exam Head Exam: ATRAUMATIC, NORMAL INSPECTION, NORMOCEPHALIC - Eye Exam Eye Exam: EOMI, Normal appearance, PERRL Pupil Exam: NORMAL ACCOMODATION, PERRL - Respiratory Exam Respiratory Exam: Clear to PA & Lateral, NORMAL BREATHING PATTERN, UNREMARKABLE - Cardiovascular Exam Cardiovascular Exam: REGULAR RHYTHM, +S1, +S2 - GI/Abdominal Exam GI & Abdominal Exam: Normal Bowel Sounds, Unremarkable - Extremities Exam Extremities exam: full ROM Additional comments: Foot drop left - Neurological Exam Neurological exam: Alert, CN II-XII Intact, Oriented x3 - Psychiatric Exam Psychiatric exam: Normal Affect, Normal Mood - Skin Skin Exam: Dry, Intact, Normal Color, Warm Discharge Plan - Follow Up Plan Condition: STABLE Disposition: HOME/ ROUTINE Instructions: Chest Pain Referrals: PCP,NO [Non-Staff] -
[2018-02-03 12:55] VITALS: BP 139/70; PULSE 68; RESP 16; TEMP 98.4; O2SAT 97
--- NOTE | 2018-02-03 17:29 | CARD ---
APPROVED REPORT Date of service: 02/03/2018 EKG Measurement Heart [id number] <Conclusion> Normal sinus rhythm Junctional ST depression, probably normal Borderline ECG
--- NOTE | 2018-02-03 17:47 | CARD ---
APPROVED REPORT Date of service: 02/02/2018 EKG Measurement Heart [id number] ME [id number] <Conclusion> Normal sinus rhythm Normal ECG
[2018-02-03] MEDS ORDERED: Enoxaparin 40 mg Syringe SC SCH (22:00)
== END 2018-02-03 12:53 | disposition home or self-care (01) ==
LOC: H.ER 16:19 → H.ERHOLD 18:26
PROVIDERS: ADMIT Emergency Medicine; ATTEND Emergency Medicine
DX: R07.89 Other chest pain (principal); M51.17 Intervertebral disc disorders with radiculopathy, lumbosacral region; M48.061 Spinal stenosis, lumbar region without neurogenic claudication; G89.29 Other chronic pain; M21.372 Foot drop, left foot; I10 Essential (primary) hypertension; E11.9 Type 2 diabetes mellitus without complications; K21.9 Gastro-esophageal reflux disease without esophagitis
CPT/HCPCS: 71046; 72114; 80048; 80053; 81003; 83690; 84484; 85025; 85027; 93005; 96361; 96374; 99285; G0378; J1885; J7030